=== PATIENT | male | born 1955 | race Caucasian/White ===

== ENCOUNTER → 2020-09-07 | Outpatient (CLI) | payer MEDICARE ==
[~2020-09-07] MED LIST: ALBU8.5H8 INH; CHOL2000 PO; OMEP10CA2 PO; OXYC1TAB14 PO; PSYLLIUM; SENN8.6T98 PO; TEMA30CA PO; ULTIMATE FLORA; VITA150T PO; [UNRECOGNIZED DRUG - CODE] PO
== END | disposition home or self-care (01) ==
LOC: ROC 08:28
PROVIDERS: ATTEND Radiology Radiation Oncology
DX: C61 Malignant neoplasm of prostate (principal); C79.51 Secondary malignant neoplasm of bone
CPT/HCPCS: G0463

== ENCOUNTER 2020-12-07 07:30 | Outpatient (CLI) | payer MEDICARE | END 2020-12-07 23:59 | disposition home or self-care (01) | LOC: ROC 07:30 | PROVIDERS: ATTEND Radiology Radiation Oncology | DX: Z08 Encounter for follow-up examination after completed treatment for malignant neoplasm (principal); Z85.830 Personal history of malignant neoplasm of bone | CPT/HCPCS: G2251 ==